=== PATIENT | male | born 1975 | race Two or more races ===

== ENCOUNTER 2016-08-25 13:07 | Inpatient (IN) | payer OTHER ==
[2016-08-25 13:47] VITALS: BMI 22.8
--- NOTE | 2016-08-25 14:41 | HP ---
COWS - Scale Resting Pulse: 0= NE 80 or Below Sweatin= Chills/Flushing Restless Observation: 1= Difficult to Sit Still Pupil Size: 1= Pupils >than Normal Bone or Joint Aches: 2= Severe Diffuse Aches Runny Nose/ Eye Tearin= Runny Nose/Eyes GI Upset > 30mins: 1= Stomach Cramp Tremor Observation: 2= Slight Tremor Visible Yawning Observation: 0= None Anxiety or Irritability: 2=Irritable/Anxious Goose Flesh Skin: 0=Smooth Skin COWS Score: 12 CIWA Score - CIWA Score Nausea/Vomitin Muscle Tremors: 3 Anxiety: 3 Agitation: 2 Paroxysmal Sweats: No Perspiration Orientation: 0-Oriented Tacttile Disturbances: 0-None Auditory Disturbances: 0-None Visual Disturbances: 0-None Headache: 2-Mild CIWA-Ar Total Score: 12 Admission ROS BHS - HPI Chief Complaint: I need help, I want to get clean Allergies/Adverse Reactions: Allergies Allergy/AdvReac Type Severity Reaction Status Date / Time No Known Drug Allergies Allergy Verified 11/18/15 13:13 lactose AdvReac Severe Vomiting Verified 11/18/15 13:13 History of Present Illness: Extensive ho polysubstance use After last detox he relapsed after 1-2 weeks. - Ebola screening Have you traveled outside of the country in the last 21 days: No (N) Have you had contact with anyone from an Ebola affected area: No Have you been sick,other than usual withdrawal symptoms: No Do you have a fever: No - Review of Systems Constitutional: Chills, Weakness EENT: reports: Nose Congestion Respiratory: reports: No Symptoms reported Cardiac: reports: No Symptoms Reported GI: reports: Abdominal cramping : reports: No Symptoms Reported Musculoskeletal: reports: No Symptoms Reported Integumentary: reports: No Symptoms Reported Endocrine: reports: No Symptoms Reported Hematology: reports: No Symptoms Reported Psychiatric: reports: Orientated x3, Anxious Patient History - Patient Medical History Hx Anemia: No Hx Asthma: No Hx Chronic Obstructive Pulmonary Disease (COPD): No Hx Cancer: No Hx Cardiac Disorders: No Hx Congestive Heart Failure: No Hx Hypertension: No Hx Hypercholesterolemia: No Hx Pacemaker: No HX Cerebrovascular Accident: No Hx Seizures: No Hx Dementia: No Hx Diabetes: No Hx Gastrointestinal Disorders: No Hx Liver Disease: No Hx Genitourinary Disorders: No Hx Sexually Transmitted Disorders: No Hx Renal Disease (ESRD): No Hx Thyroid Disease: No Hx Human Immunodeficiency Virus (HIV): No (negative) Hx Hepatitis C: No Hx Depression: Yes (latuda) Hx Suicide Attempt: No Hx Bipolar Disorder: Yes (AND ANXIETY DISORDER) Hx Schizophrenia: No - Patient Surgical History Past Surgical History: Yes Hx Neurologic Surgery: No Hx Cataract Extraction: No Hx Cardiac Surgery: No Hx Lung Surgery: No Hx Breast Surgery: No Hx Breast Biopsy: No Hx Abdominal Surgery: No Hx Appendectomy: No Hx Cholecystectomy: No Hx Genitourinary Surgery: No Hx Section: No Hx Orthopedic Surgery: No Other Surgical History: removal of sewing needle, right knee in 2011 Anesthesia Reaction: No - PPD History Documented Results: Negative w/o proof - Smoking Cessation Smoking history: Never smoked Have you smoked in the past 12 months: No Hx Chewing Tobacco Use: No - Substances Abused Alcohol Route: Oral Frequency: Daily Amount used: 2 6 packs Age of first use: 11 Date of Last Use: 08/25/16 Heroin Route: Inhalation Frequency: Daily Amount used: 1 bundle Age of first use: 24 Date of Last Use: 08/25/16 Family Disease History - Family Disease History Family Disease History: Heart Disease: Father (HAD HEART ATTACK AND ), Other: Mother (HTN) Admission Physical Exam BHS - Vital Signs Vital Signs: Vital Signs - 24 hr 08/25/16 13:43 Temperature 95.1 F L Pulse Rate 50 L Respiratory 18 Rate Blood Pressure 141/83 - Physical General Appearance: Yes: Within Normal Limits HEENTM: Yes: Within Normal Limits Respiratory: Yes: Within Normal Limits Neck: Yes: Within Normal Limits Cardiology: Yes: Within Normal Limits Abdominal: Yes: Within Normal Limits Back: Yes: Within Normal Limits Musculoskeletal: Yes: Within Normal Limits Extremities: Yes: Within Normal Limits Neurological: Yes: Within Normal Limits Integumentary: Yes: Within Normal Limits - Diagnostic (1) Alcohol dependence with uncomplicated withdrawal Current Visit: Yes Status: Acute (2) Drug-induced mood disorder Current Visit: Yes Status: Chronic (3) Opioid dependence with withdrawal Current Visit: Yes Status: Acute (4) Anxiety disorder Current Visit: Yes Status: Chronic Qualifiers: Anxiety disorder type: unspecified anxiety disorder Qualified Code(s ): F41.9 - Anxiety disorder, unspecified (5) Bipolar II disorder Current Visit: Yes Status: Chronic (6) Heroin dependence Current Visit: Yes Status: Chronic Cleared for Admission [facility] - Detox or Rehab [facility] Level of Care: Medically Managed Detox Regimen/Protocol: Methadone/Librium [facility] Breath Alcohol Content Breath Alcohol Content: 0 Urine Drug Screen - Results Drug Screen Negative: No Urine Drug Screen Results: OPI-Opiates, OXY-Oxycodone
[2016-08-25] MEDS ORDERED: LOPERAMIDE HCL 2 MG CAPSULE PO PRN (14:51)
[2016-08-25] MEDS ORDERED: MAGNESIUM HYDROX 2400MG/30ML ORAL SUSPENSION 30 ML CUP PO PRN (14:51)
[2016-08-25] MEDS ORDERED: IBUPROFEN 400 MG TABLET (FP) PO PRN (14:51)
[2016-08-25] MEDS ORDERED: P-EPHED 60MG/TRIPROLIDI 2.5MG TABLET PO PRN (14:51)
[2016-08-25] MEDS ORDERED: MENTHOL/PHENOL 1 EACH UD MM PRN (14:51)
[2016-08-25] MEDS ORDERED: METHADONE HCL 10 MG TABLET (FOR DETOX USE ONLY) PO ONE ×2 (14:51→23:00)
[2016-08-25] MEDS ORDERED: MAG HYDROX/AL HYDROX/SIMETH 30 ML UNIT-DOSE CUP PO PRN (14:51)
[2016-08-25] MEDS ORDERED: ACETAMINOPHEN 325 MG TABLET (FP) PO PRN (14:51)
[2016-08-25] MEDS ORDERED: guaiFENesin/D-METHORPHAN HB 10 ML UNIT-DOSE CUPS PO PRN (14:51)
[2016-08-25] MEDS ORDERED: MAGNESIUM CITRATE 300 ML BOTTLE PO PRN (14:51)
[2016-08-25] MEDS ORDERED: diphenhydrAMINE HCL 50 MG CAPSULE PO PRN (14:51)
[2016-08-25] MEDS ORDERED: chlordiazePOXIDE HCL 25 MG CAPSULE PO PRN (14:51)
[2016-08-25] MEDS ORDERED: METHADONE HCL 10 MG TABLET (FOR DETOX USE ONLY) ONE (18:55)
[2016-08-25] MEDS: chlordiazePOXIDE HCL 25 MG CAPSULE PO SCH ×2 (19:11→22:29)
--- NOTE | 2016-08-25 19:31 | CONSULT ---
[facility] Psychiatric Consult - Data Date of interview: 08/25/16 Admission source: [facility] Identifying data: Readmission to [facility] for this 41 y/o male seeking detox treatment on for alcohol and heroin dependence.Patient is ,a faather of two,domiciled,unemployed and supported on [facility] benefits. Substance Abuse History: - Smoking Cessation. Smoking history: Never smoked. Have you smoked in the past 12 months: No. Hx Chewing Tobacco Use: No. - Substances Abused. Alcohol. Route: Oral. Frequency: Daily. Amount used: 2 6 packs. Age of first use: 11. Date of Last Use: 08/25/16. Heroin. Route: Inhalation. Frequency: Daily. Amount used: 1 bundle. Age of first use : 24. Date of Last Use: 08/25/16. Confirmed by patient. Medical History: Significant for a history of childhood bronchial asthma.Noted past report of an episode of right pulmonary embolism. Psychiatric History: No significant changes in psychiatric history since most recent encounter in 2015.Diagnosed with Bipolar Disorder since 2001.One previous psychiatric hospitalization (2002) at [facility] for a suicide attempt via overdose with medications.Precipitant : of his father.Psychiatric outpatient services are provided at [facility] by Dr Veronica.Mr Sotomayor informs that he is prescribed latuda 40 mg/daily and Ambien 10 mg/ HS.Patient indicates that he last took his medications on 08/24/15 before this [facility] visit. Physical/Sexual Abuse/Trauma History: Patient denies history of abuse. Mental Status Exam - Mental Status Exam Alert and Oriented to: Time, Place, Person Cognitive Function: Good Patient Appearance: Well Groomed Mood: Hopeful, Euthymic Affect: Appropriate, Normal Range Patient Behavior: Fatigued, Appropriate, Cooperative Speech Pattern: Clear Voice Loudness: Normal Thought Process: Goal Oriented Thought Disorder: Not Present Hallucinations: Denies Suicidal Ideation: Denies Homicidal Ideation: Denies Insight/Judgement: Poor Sleep: Poorly, Difficulty falling asleep Appetite: Good Muscle strength/Tone: Normal Gait/Station: Normal Psychiatric Findings - Problem List ([place] 1, 2,3) (1) Alcohol dependence with uncomplicated withdrawal Current Visit: Yes Status: Acute (2) Opioid dependence with withdrawal Current Visit: Yes Status: Acute (3) Cocaine dependence Current Visit: Yes Status: Acute Qualifiers: Substance use status: uncomplicated Qualified Code(s): F14.20 - Cocaine dependence, uncomplicated (4) Drug-induced mood disorder Current Visit: Yes Status: Acute (5) Bipolar disorder Current Visit: Yes Status: Chronic (6) Chronic LBP Current Visit: No Status: Chronic Qualifiers: Back pain laterality: bilateral (7) Insomnia Current Visit: Yes Status: Chronic (8) Positive PPD Current Visit: No Status: Chronic Comment: states due to HCG vaccine - Initial Treatment Plan Initial Treatment Plan: Psychoeducation.Detoxification.Medications : latuda 40 mg po daily + zolpidem 5 mg po hs prn.Side effects/benefits discussed with patient.He consents to follow this plan of care.Previous records are reviewed.Medicatioins confirmed.Observation.Patient states that he does not need script for latuda at discharge (enough supply at home).
[2016-08-25] MEDS ORDERED: ZOLPIDEM TARTRATE 5 MG TABLET PO PRN (19:58)
[2016-08-25] MEDS: THIAMINE HCL 100 MG TABLET (FP) PO SCH (22:28)
[2016-08-26] MEDS: chlordiazePOXIDE HCL 25 MG CAPSULE PO SCH ×4 (05:46→22:29)
[2016-08-26 09:13] LABS: MCH 27.7 pg (25.7-33.7); MCHC 32.1 g/dl (32.0-35.9); MEAN CELL VOLUME 86.2 fl (80-96); MEAN PLT VOLUME 9.2 fl (7.5-11.1); PLATELET COUNT 190 K/MM3 (134-434); RDW 14.4 % (11.9-15.9); WHITE BLOOD COUNT 4.7 K/mm3 (4.0-10.0)
[2016-08-26 09:33] LABS: ALBUMIN 3.4 g/dl (3.4-5.0); ALK PHOS 63 U/L (45-117); ANION GAP 7 (8-16); BILIRUBIN,TOTAL 0.6 mg/dL (0.2-1.0); CALCIUM 8.7 mg/dL (8.5-10.1); CO2 32 mmol/L (21-32); CREATININE 0.9 mg/dL (0.7-1.3); GLUCOSE,RANDOM 75 mg/dL (74-106); SGOT/AST 19 U/L (15-37); SGPT/ALT 28 U/L (12-78); TOT PROT 6.7 g/dl (6.4-8.2)
[2016-08-26] MEDS ORDERED: METHADONE HCL 10 MG TABLET (FOR DETOX USE ONLY) PO SCH (10:00)
[2016-08-26] MEDS ORDERED: NAPROXEN 500 MG TABLET (FP) PO ONE (10:03)
[2016-08-26] MEDS: PRENATAL VITAMINS W/ FOLIC ACID TABLET (FP) PO SCH (10:11)
[2016-08-26] MEDS: LURASIDONE HCL 40 MG TABLET PO SCH (10:11)
[2016-08-26] MEDS ORDERED: ZOLPIDEM TARTRATE 5 MG TABLET PO PRN ×2 (10:13→14:31)
--- NOTE | 2016-08-26 14:37 | PN ---
S CIWA - CIWA Score Nausea/Vomitin Muscle Tremors: 4-Moderate,w/Arms Extend Anxiety: 4-Mod. Anxious/Guarded Agitation: 3 Paroxysmal Sweats: No Perspiration Orientation: 0-Oriented Tacttile Disturbances: 1-Very Mild Itch/Numbness Auditory Disturbances: 0-None Visual Disturbances: 0-None Headache: 3-Moderate CIWA-Ar Total Score: 20 BHS COWS - Scale Resting Pulse: 0= [place] 80 or Below Sweatin= Chills/Flushing Restless Observation: 3= Extraneous Movement Pupil Size: 0= Normal to Room Light Bone or Joint Aches: 2= Severe Diffuse Aches Runny Nose/ Eye Tearin= Runny Nose/Eyes GI Upset > 30mins: 3= Vomiting/Diarrhea Tremor Observation of Outstretched Hands: 2= Slight Tremor Visible Yawning Observation: 0= None Anxiety or Irritability: 2=Irritable/Anxious Goose Flesh Skin: 0=Smooth Skin COWS Score: 15 BHS Progress Note (SOAP) Subjective: N/V, sweating, tremor, anxious, restless, interrupted sleep (benadryl or ambien 5mg not effective, requesting ambien 10 mg) Objective: 08/26/16 14:35 Last Vital Signs Temp Pulse Resp BP Pulse Ox 98.4 F 94 H 20 127/78 08/26/16 13:35 08/26/16 13:35 08/26/16 13:35 08/26/16 13:35 Laboratory Tests 08/26/16 08/26/16 08/26/16 07:20 07:20 07:20 WBC 4.7 RBC 4.45 Hgb 12.3 Hct 38.3 MCV 86.2 MCHC 32.1 RDW 14.4 Plt Count 190 MPV 9.2 Sodium 142 Potassium 4.2 Chloride 103 Carbon Dioxide 32 Anion Gap 7 L BUN 10 D Creatinine 0.9 Creat Clearance w eGFR > 60 Random Glucose 75 D Calcium 8.7 Total Bilirubin 0.6 D AST 19 D ALT 28 D Alkaline Phosphatase 63 Total Protein 6.7 Albumin 3.4 RPR Titer Nonreactive Labs noted Assessment: 08/26/16 14:36 Withdrawal symptoms Plan: Continue detox
--- NOTE | 2016-08-26 14:39 | EKG ---
Test Reason : Blood Pressure : / mmHG Vent. Rate : 054 BPM Atrial Rate : 054 BPM P-R Int : 176 ms QRS Dur : 084 ms QT Int : 420 ms P-R-T Axes : 030 002 033 degrees QTc Int : 398 ms SINUS BRADYCARDIA NONSPECIFIC T WAVE ABNORMALITY ABNORMAL ECG NO PREVIOUS ECGS AVAILABLE Confirmed by FRANCY MUELLER MD ([id number]) on 08/26/2016 2:38:43 PM Referred By: Confirmed By:FRANCY MUELLER MD
[2016-08-26 17:40] LABS: URINE APPEARANCE CLEAR; URINE BILIRUBIN NEGATIVE (NEGATIVE); URINE BLOOD NEGATIVE (NEGATIVE); URINE COLOR YELLOW; URINE GLUCOSE (UA) NEGATIVE (NEGATIVE); URINE KETONE NEGATIVE (NEGATIVE); URINE LEUK ESTERASE NEGATIVE (NEGATIVE); URINE NITRITE NEGATIVE (NEGATIVE); URINE PROTEIN NEGATIVE (NEGATIVE); URINE UROBILINOGEN NEGATIVE E.U./dl (0.2-1.0)
[2016-08-26] MEDS: THIAMINE HCL 100 MG TABLET (FP) PO SCH (22:29)
[2016-08-27] MEDS: chlordiazePOXIDE HCL 25 MG CAPSULE PO SCH ×2 (05:30→10:25)
[2016-08-27] MEDS ORDERED: cloNIDine HCL 0.1 MG TABLET PO SCH (10:00)
[2016-08-27] MEDS ORDERED: METHADONE HCL 5 MG TABLET (FOR DETOX USE ONLY) PO SCH (10:00)
[2016-08-27] MEDS: LURASIDONE HCL 40 MG TABLET PO SCH (10:24)
[2016-08-27] MEDS: PRENATAL VITAMINS W/ FOLIC ACID TABLET (FP) PO SCH (10:25)
--- NOTE | 2016-08-27 11:01 | PN ---
S CIWA - CIWA Score Nausea/Vomitin-Mild Nausea/No Vomiting Muscle Tremors: 3 Anxiety: 3 Agitation: 4-Moderately Restless Paroxysmal Sweats: 4-Forehead w/Sweat Beads Orientation: 0-Oriented Tacttile Disturbances: 3-Moderate Itch/Numb/Burn Auditory Disturbances: 0-None Visual Disturbances: 0-None Headache: 1-Very Mild CIWA-Ar Total Score: 19 BHS COWS - Scale Resting Pulse: 0= [place] 80 or Below Sweatin=Flushed/Facial Moisture Restless Observation: 1= Difficult to Sit Still Pupil Size: 1= Pupils >than Normal Bone or Joint Aches: 2= Severe Diffuse Aches Runny Nose/ Eye Tearin= Runny Nose/Eyes GI Upset > 30mins: 2= Nausea/Diarrhea Tremor Observation of Outstretched Hands: 2= Slight Tremor Visible Yawning Observation: 2= >3x During Session Anxiety or Irritability: 2=Irritable/Anxious Goose Flesh Skin: 0=Smooth Skin COWS Score: 16 S Progress Note (SOAP) Subjective: Anxiety, Sweating, restlessness, interrupted sleep Objective: 08/27/16 10:59 Vital Signs - 8 hr 08/27/16 08/27/16 08/27/16 03:30 06:36 10:12 Temperature 96.7 F L 96.0 F L Pulse Rate 51 L 57 L Respiratory 16 18 18 Rate Blood Pressure 124/79 124/83 Laboratory Last Values WBC 4.7 K/mm3 (4.0-10.0) 08/26/16 07:20 RBC 4.45 M/mm3 (4.00-5.60) 08/26/16 07:20 Hgb 12.3 GM/dL (11.7-16.9) 08/26/16 07:20 Hct 38.3 % (35.4-49) 08/26/16 07:20 MCV 86.2 fl (80-96) 08/26/16 07:20 MCHC 32.1 g/dl (32.0-35.9) 08/26/16 07:20 RDW 14.4 % (11.9-15.9) 08/26/16 07:20 Plt Count 190 K/MM3 (134-434) 08/26/16 07:20 MPV 9.2 fl (7.5-11.1) 08/26/16 07:20 Sodium 142 mmol/L (136-145) 08/26/16 07:20 Potassium 4.2 mmol/L (3.5-5.1) 08/26/16 07:20 Chloride 103 mmol/L (98-107) 08/26/16 07:20 Carbon Dioxide 32 mmol/L (21-32) 08/26/16 07:20 Anion Gap 7 (8-16) L 08/26/16 07:20 BUN 10 mg/dL (7-18) D 08/26/16 07:20 Creatinine 0.9 mg/dL (0.7-1.3) 08/26/16 07:20 Creat Clearance w eGFR > 60 (>60) 08/26/16 07:20 Random Glucose 75 mg/dL (74-106) D 08/26/16 07:20 Calcium 8.7 mg/dL (8.5-10.1) 08/26/16 07:20 Total Bilirubin 0.6 mg/dL (0.2-1.0) D 08/26/16 07:20 AST 19 U/L (15-37) D 08/26/16 07:20 ALT 28 U/L (12-78) D 08/26/16 07:20 Alkaline Phosphatase 63 U/L (45-117) 08/26/16 07:20 Total Protein 6.7 g/dl (6.4-8.2) 08/26/16 07:20 Albumin 3.4 g/dl (3.4-5.0) 08/26/16 07:20 Urine Color Yellow 08/26/16 11:00 Urine Appearance Clear 08/26/16 11:00 Urine pH 6.0 (5.0-8.0) 08/26/16 11:00 Ur Specific [place] 1.025 (1.001-1.035) 08/26/16 11:00 Urine Protein Negative (NEGATIVE) 08/26/16 11:00 Urine Glucose (UA) Negative (NEGATIVE) 08/26/16 11:00 Urine Ketones Negative (NEGATIVE) 08/26/16 11:00 Urine Blood Negative (NEGATIVE) 08/26/16 11:00 Urine Nitrite Negative (NEGATIVE) 08/26/16 11:00 Urine Bilirubin Negative (NEGATIVE) 08/26/16 11:00 Urine Urobilinogen Negative E.U./dl (0.2-1.0) 08/26/16 11:00 Ur Leukocyte Esterase Negative (NEGATIVE) 08/26/16 11:00 RPR Titer Nonreactive (NONREACTIVE) 08/26/16 07:20 labs noted Assessment: 08/27/16 11:01 Withdrawal Symptoms Plan: Continue Detox
[2016-08-27] MEDS ORDERED: CYCLOBENZAPRINE HCL 10 MG TABLET (FP) PO SCH (14:00)
[2016-08-27] MEDS ORDERED: chlordiazePOXIDE 5 MG CAPSULE PO SCH (17:00)
[2016-08-27 18:44] VITALS: BP 154/88; PULSE 51; TEMP 97.6
--- NOTE | 2016-08-27 19:47 | PN ---
BHS Progress Note Note: RECEIVED NURSE CALL BP 154/86 LIBRIUM 15 MG GIVEN CONTINUE DETOX
--- NOTE | 2016-08-27 20:28 | PN ---
[facility] Progress Note Note: INVENTORY MANAGEMENT SPECIALIST SPOKE TO THE PATIENT ON THE FLOOR, WHO REQUESTED TO LEAVE AMA. HE STATED HE DID NOT NEED TO CONTINUE DETOX AND WANTED TO LEAVE. INVENTORY MANAGEMENT SPECIALIST ENCOURAGED THE PT. TO STAY AND HE WAS EDUCATED ON THE BENEFITS OF COMPLETING TREATMENT; PT. VERBALIZED UNDERSTANDING BUT HE REFUSED. HE WAS ENCOURAGED TO ATTEND NA AND OBTAIN LINKAGE WITH OUTPATIENT TREATMENT; PT. VERBALIZED UNDERSTANDING.
[2016-08-28] MEDS ORDERED: chlordiazePOXIDE HCL 10 MG CAPSULE PO SCH (17:00)
[2016-08-29] MEDS ORDERED: METHADONE HCL 10 MG TABLET (FOR DETOX USE ONLY) PO SCH (10:00)
[2016-08-30] MEDS ORDERED: METHADONE HCL 5 MG TABLET (FOR DETOX USE ONLY) PO SCH (06:00)
--- NOTE | 2016-09-23 17:12 | DS ---
[facility] Detox Discharge Summary Admission Date: 08/25/16 Discharge Date: 08/27/16 - History Present History: Alcohol Dependence, Cocaine Dependence, Opioid Dependence Pertinent Past History: back pain hx. of pulmonary embolism - Physical Exam Results Vital Signs: Vital Signs Temperature 97.6 F 08/27/16 18:43 Pulse Rate 51 L 08/27/16 18:43 Respiratory Rate 20 08/27/16 18:43 Blood Pressure 154/88 08/27/16 18:43 O2 Sat by Pulse Oximetry (%) Pertinent Admission Physical Exam Findings: withdrawal sx. Laboratory Last Values WBC 4.7 K/mm3 (4.0-10.0) 08/26/16 07:20 RBC 4.45 M/mm3 (4.00-5.60) 08/26/16 07:20 Hgb 12.3 GM/dL (11.7-16.9) 08/26/16 07:20 Hct 38.3 % (35.4-49) 08/26/16 07:20 MCV 86.2 fl (80-96) 08/26/16 07:20 MCHC 32.1 g/dl (32.0-35.9) 08/26/16 07:20 RDW 14.4 % (11.9-15.9) 08/26/16 07:20 Plt Count 190 K/MM3 (134-434) 08/26/16 07:20 MPV 9.2 fl (7.5-11.1) 08/26/16 07:20 Sodium 142 mmol/L (136-145) 08/26/16 07:20 Potassium 4.2 mmol/L (3.5-5.1) 08/26/16 07:20 Chloride 103 mmol/L (98-107) 08/26/16 07:20 Carbon Dioxide 32 mmol/L (21-32) 08/26/16 07:20 Anion Gap 7 (8-16) L 08/26/16 07:20 BUN 10 mg/dL (7-18) D 08/26/16 07:20 Creatinine 0.9 mg/dL (0.7-1.3) 08/26/16 07:20 Creat Clearance w eGFR > 60 (>60) 08/26/16 07:20 Random Glucose 75 mg/dL (74-106) D 08/26/16 07:20 Calcium 8.7 mg/dL (8.5-10.1) 08/26/16 07:20 Total Bilirubin 0.6 mg/dL (0.2-1.0) D 08/26/16 07:20 AST 19 U/L (15-37) D 08/26/16 07:20 ALT 28 U/L (12-78) D 08/26/16 07:20 Alkaline Phosphatase 63 U/L (45-117) 08/26/16 07:20 Total Protein 6.7 g/dl (6.4-8.2) 08/26/16 07:20 Albumin 3.4 g/dl (3.4-5.0) 08/26/16 07:20 Urine Color Yellow 08/26/16 11:00 Urine Appearance Clear 08/26/16 11:00 Urine pH 6.0 (5.0-8.0) 08/26/16 11:00 Ur Specific [place] 1.025 (1.001-1.035) 08/26/16 11:00 Urine Protein Negative (NEGATIVE) 08/26/16 11:00 Urine Glucose (UA) Negative (NEGATIVE) 08/26/16 11:00 Urine Ketones Negative (NEGATIVE) 08/26/16 11:00 Urine Blood Negative (NEGATIVE) 08/26/16 11:00 Urine Nitrite Negative (NEGATIVE) 08/26/16 11:00 Urine Bilirubin Negative (NEGATIVE) 08/26/16 11:00 Urine Urobilinogen Negative E.U./dl (0.2-1.0) 08/26/16 11:00 Ur Leukocyte Esterase Negative (NEGATIVE) 08/26/16 11:00 RPR Titer Nonreactive (NONREACTIVE) 08/26/16 07:20 labs noted - Medication Discharge Medications: Ambulatory Orders Cyclobenzaprine HCl [Flexeril -] 10 mg PO BID 03/22/15 Lurasidone HCl [Latuda -] 40 mg PO HS #30 tablet 11/19/15 Mirtazapine [Remeron -] 30 mg PO HS #30 tablet 11/19/15 Amoxicillin - [Amoxicillin 500mg Capsule -] 500 mg PO TID #14 capsule 11/23/15 Lidocaine 2% Viscous Oral [Xylocaine 2% Viscous Oral -] 10 ml MM Q4H PRN #10 ud 11/23/15 Naproxen [Naprosyn -] 500 mg PO BID #30 tablet 11/23/15 - Diagnosis (1) Alcohol dependence with uncomplicated withdrawal Status: Acute (2) Cocaine dependence Status: Acute Qualifiers: Substance use status: uncomplicated Qualified Code(s): F14.20 - Cocaine dependence, uncomplicated (3) Drug-induced mood disorder Status: Acute (4) Opioid dependence with withdrawal Status: Acute (5) Bipolar disorder Status: Chronic - AMA Did Patient Leave Against Medical Advice: Yes
== END 2016-08-27 20:36 | disposition left against medical advice (07) | DRG 770 ==
LOC: YASAS 13:07 → Y3N 14:16
PROVIDERS: ADMIT Internal Medicine; ATTEND Internal Medicine
PROC: HZ2ZZZZ Detoxification Services for Substance Abuse Treatment (ICD-10-PCS; principal; 2016-08-25)
DX: F11.23 Opioid dependence with withdrawal (principal); F10.230 Alcohol dependence with withdrawal, uncomplicated; F19.24 Other psychoactive substance dependence with psychoactive substance-induced mood disorder; F31.81 Bipolar II disorder; F41.9 Anxiety disorder, unspecified; M54.5 Low back pain; G89.29 Other chronic pain; G47.00 Insomnia, unspecified; R76.11 Nonspecific reaction to tuberculin skin test without active tuberculosis
CPT/HCPCS: 36415; 80053; 81003; 85027; 86593; 93005; 93010